=== PATIENT | male | born 1940 | race Caucasian/White ===

== ENCOUNTER 2024-12-25 10:55 | Emergency (ER) | payer MEDICARE, OTHER ==
[~2024-12-25] VITALS: Ht 193 cm; Wt 93.2 kg
[2024-12-25 11:07] VITALS: BP 158/69; PULSE 76; O2SAT 97
[2024-12-25 12:51] VITALS: RESP 16
[2024-12-25] MEDS: HYDROcodone/acetaminophen 5mg/325mg tablet PO ONE (12:51)
[2024-12-25] MEDS ORDERED: HYDR-3965 PO (14:36)
[2024-12-25 14:50] VITALS: TEMP 98
== END 2024-12-25 14:52 | disposition home or self-care (01) ==
LOC: ER 10:56
DX: S32.591A Other specified fracture of right pubis, initial encounter for closed fracture (principal); W01.0XXA Fall on same level from slipping, tripping and stumbling without subsequent striking against object, initial encounter; Y93.89 Activity, other specified; Y92.89 Other specified places as the place of occurrence of the external cause; Y99.8 Other external cause status
CPT/HCPCS: 73502; 99283

== ENCOUNTER 2025-02-09 01:06 | Emergency (ER) | payer MEDICARE, OTHER ==
[~2025-02-09] VITALS: Ht 193 cm; Wt 108.9 kg
[2025-02-09 01:25] VITALS: BP 134/87; PULSE 84; O2SAT 92
[2025-02-09 01:44] LABS: BASOPHILS % (AUTO) 0.3 % (0-1); EOSINOPHILS # (AUTO) 0.6 X10'3 (0-0.9); EOSINOPHILS % (AUTO) 5.2 % (0-6); HEMATOCRIT 42.2 % (42.0-52.0); HEMOGLOBIN 14.3 g/dl (14.0-17.9); LYMPHOCYTES # (AUTO) 2.2 X10'3 (1.1-4.8); LYMPHOCYTES % (AUTO) 17.6 % (21-51); MEAN CORPUSCULAR HEMOGLOBIN 32.1 PG (27.0-31.0); MEAN CORPUSCULAR VOLUME 94.4 FL (78-98); MONOCYTES # (AUTO) 0.6 X10'3 (0-0.9); NEUTROPHILS # (AUTO) 8.8 X10'3 (1.8-7.7); NEUTROPHILS % (AUTO) 71.9 % (42-75); PLATELET COUNT 168 X10'3 (140-440); RED BLOOD COUNT 4.47 X10'6 (4.70-6.10); RED CELL DISTRIBUTION WIDTH 14.2 % (11.5-14.5); WHITE BLOOD COUNT 12.3 X10'3 (4.5-11.0)
[2025-02-09 01:56] LABS: ALANINE AMINOTRANSFERASE 29 U/L (12-78); ALBUMIN 3.5 G/DL (3.4-5.0); ALBUMIN/GLOBULIN RATIO 1.1 (1.1-1.5); ALKALINE PHOSPHATASE 192 IU/L (46-116); ANION GAP 14 (8-16); ASPARTATE AMINO TRANSFERASE 27 U/L (10-37); BILIRUBIN,TOTAL 0.6 MG/DL (0.1-1.0); BLOOD UREA NITROGEN 14 MG/DL (7-18); BUN/CREATININE RATIO 8.5 (10.0-20.0); CALCIUM 9.1 MG/DL (8.5-10.1); CHLORIDE 102 MMOL/L (99-107); CREATININE 1.64 MG/DL (0.60-1.10); GLUCOSE 141 MG/DL (70-104); POTASSIUM 4.2 MMOL/L (3.5-5.1); SODIUM 137 MMOL/L (135-145); TOTAL CARBON DIOXIDE 21.5 MMOL/L (24-32); TOTAL PROTEIN 6.7 G/DL (6.4-8.2); eCRCL 43 ML/MIN; eGFR 40 ML/MIN
[2025-02-09 02:18] VITALS: RESP 10
[2025-02-09] MEDS: HYDROcodone/acetaminophen 5mg/325mg tablet PO ONE (02:18)
[2025-02-09 02:30] LABS: BILIRUBIN,URINE NEGATIVE (Neg); CLARITY,URINE CLEAR (Clear); COLOR,URINE YELLOW (Yellow); GLUCOSE, URINE NEGATIVE (Neg); KETONES,URINE TRACE mg/dl (Neg); LEUKOCYTE ESTERASE ,URINE NEGATIVE (Neg); NITRITES, URINE NEGATIVE (Neg); OCCULT BLOOD,URINE TRACE-INTACT (Neg); PROTEIN,URINE NEGATIVE (Neg); UROBILINOGEN,URINE 0.2 E.U/dL (0.2-1.0)
[2025-02-09 02:34] LABS: UA COLLECTION TYPE NON-SPECIFIED
[2025-02-09 02:35] LABS: WBC,URINE 0-4 /HPF (0-4)
[2025-02-09 02:36] LABS: BACTERIA,URINE NONE SEEN /HPF (Neg); RBC,URINE 0-2 /HPF (0-2); SQUAMOUS EPITHELIAL CELL,UR FEW /LPF (FEW)
--- NOTE | 2025-02-09 02:51 | Physician Documentation ---
History of Present Illness ~ Chief Complaint: Overdose Stated Complaint: CHEST PAIN Time Seen by MD: 01:10 Mode of Arrival: EMS HPI 84 year old male BIB EMS, reporting that family members had found him unresponsive in a chair. EMS noted pinpoint pupils and provided narcan, and the patient's mental status improved. He takes pain medication for his low back pain. He denies other substance use. Medication Reconciliation Allergies: Coded Allergies: No Known Allergies (Unverified , 12/25/24) Review of Systems All Other Systems at this time: Reviewed and Negative Physical Exam Vital Signs: RN Vital Signs have been reviewed: Yes, Temperature: 97.6, Source: Temporal, Heart Rate: 84, Respiratory Rate: 10, BP: 134/87, Pulse Oximetry: 92, Weight: 108.860 Physical Exam HEENT: PERRL, moist oral mucosa, EOMI Pulmonary: No respiratory distress MSK: no deformity Skin: w/d/i, no rash Neuro: alert, nonfocal Psych: normal affect Progress Results/Orders Results/Orders Completed Orders - BRYON AYERS MD Cbc/Diff (02/09/25 01:10) CMP (02/09/25 01:10) Hydrocodone/Apap 5/325mg Tab ([place] 5/32 (02/09/25 02:05) Ua W/Microscopic, Cult If Ind (02/09/25 02:23) Medications Received in ER Medications (Trade) Dose Ordered Sig/Pavithra Route PRN Reason Start Time Stop Time Status Last Admin Dose Admin ([place] 5/325mg tablet) 1 tab ONCE ONCE PO 02/09/25 02:05 02/09/25 02:06 DC 02/09/25 02:18 1 TAB Vital Signs 02/09/25 02/09/25 02/09/25 02/09/25 01:09 01:19 01:25 02:18 Temp 97.6 97.6 Pulse 84 84 Resp 10 10 10 10 B/P (MAP) 134/87 134/87 (103) Pulse Ox 95 92 02/09/25 03:49 Temp 97.6 B/P (MAP) Laboratory Tests Test 02/09/25 01:22 02/09/25 02:23 White Blood Count 12.3 H Red Blood Count 4.47 L Hemoglobin 14.3 Hematocrit 42.2 Mean Corpuscular Volume 94.4 Mean Corpuscular Hemoglobin 32.1 H Mean Corpuscular Hemoglobin Concent 34.0 Red Cell Distribution Width 14.2 Platelet Count 168 Mean Platelet Volume 8.0 Neutrophils (%) (Auto) 71.9 Lymphocytes (%) (Auto) 17.6 L Monocytes (%) (Auto) 5.0 Eosinophils (%) (Auto) 5.2 Basophils (%) (Auto) 0.3 Neutrophils # (Auto) 8.8 H Lymphocytes # (Auto) 2.2 Monocytes # (Auto) 0.6 Eosinophils # (Auto) 0.6 Basophils # (Auto) 0.0 CBC Comment Sodium Level 137 Potassium Level 4.2 Chloride Level 102 Carbon Dioxide Level 21.5 L Anion Gap 14 Blood Urea Nitrogen 14 Creatinine 1.64 H Estimated GFR/1.73 m2 40 BUN/Creatinine Ratio 8.5 L Glucose Level 141 H Calcium Level 9.1 Total Bilirubin 0.6 Aspartate Amino Transf (AST/SGOT) 27 Alanine Aminotransferase (ALT/SGPT) 29 Alkaline Phosphatase 192 H Total Protein 6.7 Albumin 3.5 Globulin 3.2 Albumin/Globulin Ratio 1.1 Chemistry Comments Urine Specimen Description Non-specified Urine Color Yellow Urine Clarity Clear Urine pH 6.0 Urine Specific Philip 1.025 Urine Protein Negative Urine Glucose (UA) Negative Urine Ketones Trace H Urine Occult Blood Trace-intact Urine Nitrite Negative Urine Bilirubin Negative Urine Urobilinogen 0.2 Urine Leukocyte Esterase Negative Urine RBC 0-2 Urine WBC 0-4 Urine Squamous Epithelial Cells Few Urine Bacteria None seen Urine Culture Indicated Not ind Volume Urine Centrifuged 10 ml Urine Comment Medical Decision Making Findings 84 year old male, altered, with likely somnolence 2/2 opioid dosing. Observed in ER, workup largely unremarkable, will road test and discharge into care of family. Differential Dx:Considerations: Include: Alcohol abuse, Drug Overdose- Accidental, Drug Overdose-Intentional, Encephalopathy, Renal failure, Respiratory failure Departure Disposition: HOME / SELF CARE / HOMELESS Impression: Primary Impression: Poisoning by opiate or related narcotic Condition: Stable Discharge Instructions: Accidental Drug Poisoning, Adult Referrals: NO PRIMARY CARE PROVIDER (PCP) Education Educated: Patient, Family Educated regarding: diagnosis, treatment, prognosis, need for follow up Signature Scribe Signature: . Attestation: . BRYON AYERS MD February 09, 2025 02:51
[2025-02-09 03:49] VITALS: TEMP 97.6
== END 2025-02-09 03:51 | disposition home or self-care (01) ==
LOC: ER 01:06
DX: T40.601A Poisoning by unspecified narcotics, accidental (unintentional), initial encounter (principal); Y92.89 Other specified places as the place of occurrence of the external cause
CPT/HCPCS: 36415; 80053; 81001; 85025; 99283